=== PATIENT | female | born 1995 | race Caucasian/White ===

== ENCOUNTER → 2017-11-04 10:59 | Outpatient (CLI) | payer OTHER, SELFPAY ==
[2017-11-04 16:12] LABS: Neisserai gonorrhoeae by PCR Negative (Negative)
[2017-11-04 16:13] LABS: Probe Check PASS
[2017-11-04 16:14] LABS: Chlamydia Trachomatis by PCR POSITIVE (Negative)
== END ==
PROVIDERS: Visit Provider Obstetrics & Gynecology
DX: Z11.3 Encounter for screening for infections with a predominantly sexual mode of transmission (principal)
CPT/HCPCS: 87491; 87591

== ENCOUNTER → 2017-11-08 16:24 | Outpatient (CLI) | payer OTHER, SELFPAY ==
[2017-11-08 19:10] LABS: HIV - WCH Non-Reactive (Nonreactive)
[2017-11-15 02:58] LABS: Rapid Plasmin Reagin (RPR) NONREACTIVE (NONREACTIVE)
== END ==
PROVIDERS: Visit Provider Obstetrics & Gynecology
DX: Z11.3 Encounter for screening for infections with a predominantly sexual mode of transmission (principal)
CPT/HCPCS: 36415; 86592; 86703

== ENCOUNTER → 2018-02-03 09:15 | Outpatient (CLI) | payer OTHER, SELFPAY ==
--- NOTE | 2018-02-03 09:15 | DT_ITS ---
This patient was seen during an EMR downtime February 03, 2018 - February 10, 2018. This patient may have a combination of paper and electronic documentation or all paper documentation. All documentation is viewable within the e-chart portion of [facility] for each patient visit.
[2018-02-09 11:17] LABS: Chlamydia Trachomatis by PCR Negative (Negative); Neisserai gonorrhoeae by PCR Negative (Negative); Probe Check PASS; Sample Adequacy Control PASS; Specimen Processing Control PASS
== END ==
PROVIDERS: Visit Provider Obstetrics & Gynecology
DX: Z86.19 Personal history of other infectious and parasitic diseases (principal)
CPT/HCPCS: 87491; 87591

== ENCOUNTER → 2018-10-20 14:10 | Outpatient (CLI) | payer OTHER, SELFPAY ==
[2018-10-20 16:18] LABS: Chlamydia Trachomatis by PCR Negative (Negative); Neisserai gonorrhoeae by PCR Negative (Negative); Probe Check PASS; Sample Adequacy Control PASS; Specimen Processing Control PASS
[2018-10-22 10:41] LABS: HPV Reflexed? NOT INDICATED
== END ==
PROVIDERS: Referring Provider Obstetrics & Gynecology; Visit Provider Obstetrics & Gynecology
DX: Z12.4 Encounter for screening for malignant neoplasm of cervix (principal)
CPT/HCPCS: 87491; 87591; 87624; 88175; G0145